=== PATIENT | female | born 1970 | race Caucasian/White ===

== ENCOUNTER 2016-12-02 10:35 | Emergency (ER) | payer OTHER ==
[~2016-12-02] VITALS: Ht 162.6 cm; Wt 90.7 kg
[~2016-12-02 10:35] MED LIST: ALTACE 5MG CAPSU5 MG PO; ASPIRIN 81MG TA81 MG PO; CLOPIDOGREL75 MG PO; FUROSEMIDE40 MG PO; LEXAPRO 20 MG T20 MG PO; NORCO 325 MG-51 TAB PO; PROTONIX 40MG T40 MG PO; RANEXA500 M1 PO; SIMVASTATIN40 MG PO; SPIRONOLACTONE25 MG NG
[2016-12-02] MEDS ORDERED: PROVENTIL0.09 MG/A1 IH (11:19)
[2016-12-02] MEDS ORDERED: MUCINEX1200 MG PO (11:19)
[2016-12-02] MEDS ORDERED: ZITHROMAX Z PA250 MG PO (11:19)
[2016-12-02] MEDS ORDERED: PROMETHAZINE D118 ML PO (11:19)
--- NOTE | 2016-12-02 11:20 | Urgent Treatment Center Report ---
History of Present Issue Date/Time Seen by Provider 12/02/16 1048 Visit Reason Pt arrived:Walked Presenting Problem:PT C/O COUGH WITH PAIN IN HER LUNGS. ADVISES SHE HAS BEEN FEELING BAD FOR ALMOST A MONTH BUT STARTED HAVING THE PAIN IN HER LUNGS FOR A WEEK Location if Accident: Onset of symptoms date/time:/ or onset unknown for:MEDICAL HX UNKNOWN Have you (or family members/close friends) recently traveled outside the [place]? N If Yes, where/when: Have you had exposure to infectious disease within the past month? TB? Other? Specify: c/o cough and now lung pain w/ cough and deep breath. Cough x 1 month, pain x 1 week. Slowly getting worse. Now not sleeping well because cough worse at night. Pain throughout lungs 4/10 at rest w/ normal breathing but 6-7/10 w/ cough or deep breaths. Bilateral lungs but worse on left. Hasn't checked for temp. Intermittent chills "but just go to bed with heated blanket". Malaise. SOA and wheezing at times, worse w/ exertion. + smoker. Tried unknown antibiotics 2-3 weeks ago. Possibly amoxicillin. Not sure. "They were my son's". Took them intermittently for 7-8 days. No improvement. Source patient Exam Limitations no limitations ALLERGIES Coded Allergies: No Known Allergies (07/05/16) Home Medications Active Scripts HYDROCODONE/ACETAMINOPHEN ([place] 5-325 Tablet) 1 TAB PO Q6HP PRN pain #7 TAB Prov: 07/05/16 Reported Medications ASPIRIN (Aspirin) 81 MG PO DAILY Spironolactone (Spironolactone) 25 MG NG BID Ramipril (Altace 5MG) 5 MG PO DAILY Furosemide (Furosemide 40MG) 40 MG PO DAILY Escitalopram Oxalate (Lexapro 20MG) 20 MG PO DAILY Simvastatin (Simvastatin 40MG Tab) 40 MG PO DAILY CLOPIDOGREL BISULFATE (Clopidogrel 75MG) 75 MG PO DAILY RANOLAZINE (RANEXA) 500 MG PO DAILY Pantoprazole Sodium (Protonix 40MG TAB) 40 MG PO BID History Medical History General CAD? No Angina: No [place]: No Hypertension? No Hyperlipidemia? No CHF? No DVT? No PE? No COPD? No Asthma? No Anemia? No GERD? No Gastric ulcers? No GI Bleed? No Hernia? No Thyroid Problems? No Hypothyroidism? No CVA? No Seizures? No Diabetes? No Renal Insuffiency? No UTI? No Stones? No BPH? No GB Disease: No Nephritic Syndrome? No Asplenia? No Hepatitis? No Sickle Cell Disease? No Arthritis? No Migraines? No Cataracts? No Glaucoma? No MRSA? No HIV? No TB? No Anxiety? No Depression? No Cancer? No More? No Immunization HX DT/Tetanus Unknown Surgical Hx Previous Surgery?Y HYSTERECTOMY GALLBLADDER RIGHT WRIST ECTOPIC X2 CARDIAC STENT Social History Smoking Hx Smoker: Current Every Day Smoker Tobacco: Yes Type Cigarettes Alcohol Alcohol: No Review of Systems All Other Systems Reviewed and Negative Constitutional see HPI Eyes denies drainage ENT denies: ear pain, ear discharge, nose discharge, nose congestion, throat pain. Respiratory see HPI Cardiovascular denies chest pain, denies palpitations Gastrointestinal denies no symptoms reported Psychiatric/Neurological denies no symptoms reported Physical Exam Vital Signs Vital Signs Date Time Temp Pulse Resp B/P Pulse O2 O2 Flow FiO2 Ox Delivery Rate 12/02 1044 98.4 84 16 119/78 98 General Appearance normal appearance, no apparent distress Eye Exam - bilateral eye normal exam Ear, Nose, Throat normal ENT inspection Neck non-tender, supple Respiratory Status Yes: trachea midline, chest symmetrical, non tender chest, pain on inspiration, non productive cough (worse w/ deep breath). No: respiratory distress, tender on palpation, use of accessory muscles, pain on expiration. Lung Sounds posterior: wheezing (right base, expiratory). bilateral: wheezing (right base, expiratory). Cardiovascular regular rate/rhythm, no murmur Neurologic alert Skin normal color, warm/dry Lymphatic no adenopathy (cervical) Medical Decision Making LABS/Meds/Orders Pt receiving controlled substance in ED? No Results/Orders Current Medication Orders Sig/Shavon Start time Last Medication Dose Route Stop Time Status Admin Methylprednisolone 125 MG ONCE ONE 12/02 1115 DC 12/02 Sodium Succinate IM 12/02 1116 1109 Methylprednisolone 0 .STK-MED ONE 12/02 1107 DC Sodium Succinate .ROUTE Orders Procedure Date/time Status CHEST(2 VIEWS-NOT PORTABLE) 12/02 1046 Active XRAY/CT/US XRAY/CT/US XRAY chest XR interpretation by reviewed by me Xray Results no infiltrates Comment pt declined offer to wait for final results. Departure Departure Time of Disposition 1111 Disposition DC Home or Self Care(routine) Clinical Impression Primary Impression: Acute bronchitis Qualifiers: Bronchitis organism: unspecified organism Qualified Code: J20.9 - Acute bronchitis, unspecified Secondary Impressions: Tobacco abuse Condition STABLE Referrals ANU VARMA (Family) Immediately for new or worsening symptoms or No noticeable improvement over next 3-4 days or improvement but then get worse again Patient Instructions DI for Acute Bronchitis, Tips to Help You Stop Smoking Additional Instructions Discussed antibiotics. Aware of risk for resistance. Should never have left overs unless a provider tells you to stop taking them, should never start taking antibiotics unless told to by your medical provider, should always take antibiotics as prescribed for full length of time. Discussed smoking cessation. Pt already knows she needs to quit. FU with PCP for final xray result. Aware nothing obviously concerning on prelim review Discussed steroids to help w/ inflammation process. Pt declines steroid pills d/ t adverse GI side effects. Reports she can tolerate injection but no pills. Aware injection today does not last full length of time pills would and to be sure to FU with Primary care if not improving or gets worse. Start antibiotic today and be sure to complete it as prescribed. Increase fluids. monitor temp Albuterol every 4 hours as needed for shortness of breath, wheezing. Pt declined offer to have Resp educate on use stating she has used one in the past and was familiar with it. mucinex with lots of water during the day and cough syrup only at night. Will cause drowsiness so no driving or operating machines after taking it. Discharge Counseling Counseled pt/family regarding diagnosis, test results, medications/RX, home care, follow up needs Prescriptions Current Visit Scripts Azithromycin (Zithromycin (Z-BISI) 250MG Tab) 250 MG PO DAILY #6 TAB TAKE TWO (2) TABLETS ON DAY 1, THEN ONE (1) TABLET DAY #2 THRU #5 Guaifenesin (Mucinex) 1,200 MG PO BID #20 TER ALBUTEROL (Proventil Hfa Inhaler) 1-2 PUFF IH Q4-6H PRN PRN shortness of breath, wheezing #1 CAN PROMETHAZINE/DEXTROMETHORPHAN (Promethazine-Dm Syrup) 5-10 ML PO QHS PRN cough #120 SYR at 1120
[2016-12-02 11:27] VITALS: BP 119/78
--- NOTE | 2016-12-02 14:04 | RADIOLOGY REPORT PS360 ---
CHEST(2 VIEWS-NOT PORTABLE) ORDERING PHYSICIAN : SUZANNA BILLS APRN PATIENT AGE: 46 years GENDER: Female INDICATION: Cough with chest pain at lungsCOUGH WITH PAIN IN LUNGS Tightness in chest pain posterior chest PROCEDURE: CHEST(2 VIEWS-NOT PORTABLE) COMPARISON: No chest film available but there is a previous CT abdomen 07/05/2016 which includes lung bases a FINDINGS: Lungs well expanded and clear with no active disease evident. No pneumothorax. No pleural effusion. Heart normal size. Normal pulmonary vascularity. Hilar and mediastinal structures appear satisfactory. Chest wall unremarkable. T-spine intact. mild thickening & variant contour of the right anterior fifth rib again noted & stable IMPRESSION No active disease in the chest...
== END 2016-12-02 11:27 | disposition home or self-care (01) ==
LOC: UTC 10:35
DX: J20.9 Acute bronchitis, unspecified (principal); Z72.0 Tobacco use

== ENCOUNTER 2017-06-15 11:59 | Emergency (ER) | payer OTHER ==
[~2017-06-15] VITALS: Ht 162.6 cm; Wt 97.5 kg
[~2017-06-15 11:59] MED LIST changes: +MUCINEX1200 MG PO; +PROMETHAZINE D118 ML PO; +PROVENTIL0.09 MG/A1 IH; +ZITHROMAX Z PA250 MG PO
[2017-06-15] MEDS ORDERED: ACETAMINOPHEN-H1 TA2 PO (12:08)
[2017-06-15] MEDS ORDERED: CYCLOBENZAPRINE10 M1 OR (12:08)
[2017-06-15] MEDS ORDERED: MEDROL 4MG. DOSE4 MG PO (12:25)
--- NOTE | 2017-06-15 12:26 | Emergency Room Report ---
History of Present Illness Time Seen by MD Johnson Presenting Problem in Triage Pt arrived:Walked Presenting Problem:PT INJURED HER BACK ON FRIDAY WHEN SHE BENT OVER AND WENT TO ER AT [facility]. 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 N Clinical Suspician of Infection? N Mental Status: 1 - Regular (Normal Baseline) Sepsis Risk:Low Sepsis Risk Have you (or family members/close friends) recently traveled outside the [place]? N If Yes, where/when: Have you had exposure to infectious disease within the past month? N TB? Other? Specify: 47 years old white female who has been experiencing low back pain radiating to the LEFT lower extremity for a week. Yesterday, she sneezed and she felt sharp pain radiating to the lateral last visit of the LEFT thigh. She denies any weakness or numbness loss of urine or bowel control. Source patient, RN notes reviewed, family Exam Limitations no limitations ALLERGIES Coded Allergies: No Known Allergies (07/05/16) Home Medications Active Scripts HYDROCODONE/ACETAMINOPHEN ([place] 5-325 Tablet) 1 TAB PO Q6HP PRN pain #7 TAB Prov: 07/05/16 Guaifenesin (Mucinex) 1,200 MG PO BID #20 TER Prov: 12/02/16 ALBUTEROL (Proventil Hfa Inhaler) 1-2 PUFF IH Q4-6H PRN PRN shortness of breath, wheezing #1 CAN Prov: 12/02/16 PROMETHAZINE/DEXTROMETHORPHAN (Promethazine-Dm Syrup) 5-10 ML PO QHS PRN cough #120 SYR Prov: 12/02/16 Reported Medications ASPIRIN (Aspirin) 81 MG PO DAILY Spironolactone (Spironolactone) 25 MG NG BID Ramipril (Altace 5MG) 5 MG PO DAILY Furosemide (Furosemide 40MG) 40 MG PO DAILY Escitalopram Oxalate (Lexapro 20MG) 20 MG PO DAILY Simvastatin (Simvastatin 40MG Tab) 40 MG PO DAILY CLOPIDOGREL BISULFATE (Clopidogrel 75MG) 75 MG PO DAILY RANOLAZINE (RANEXA) 500 MG PO DAILY Pantoprazole Sodium (Protonix 40MG TAB) 40 MG PO BID Cyclobenzaprine Hcl 10 MG OR DAILY #30 HYDROCODONE/ACETAMINOPHEN (Hydrocodon-Acetaminophen 5-325) 1 TAB PO PRN PRN . #10 History Medical History General CAD? No Angina: No [place]: No Hypertension? No Hyperlipidemia? No CHF? No DVT? No PE? No COPD? No Asthma? No Anemia? No GERD? No Gastric ulcers? No GI Bleed? No Hernia? No Thyroid Problems? No Hypothyroidism? No CVA? No Seizures? No Diabetes? No Renal Insuffiency? No End Stage Renal Disease? No UTI? No Stones? No BPH? No GB Disease: No Nephritic Syndrome? No Asplenia? No Hepatitis? No Sickle Cell Disease? No Arthritis? No Migraines? No Cataracts? No Glaucoma? No MRSA? No HIV? No TB? No Anxiety? No Depression? No Cancer? No More? 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 Respiratory no symptoms reported Cardiovascular no symptoms reported Gastrointestinal no symptoms reported Genitourinary no symptoms reported. Musculoskeletal see HPI, back pain Skin no symptoms reported Psychiatric/Neurological no symptoms reported Physical Exam Vital Signs Vital Signs Date Time Temp Pulse Resp B/P Pulse O2 O2 Flow FiO2 Ox Delivery Rate 06/15 1202 98.3 110 14 138/86 98 - WBC >12,000 or <4,000 or 10% bands? 2 or more SIRS Criteria Met? B/P:138/86 MAP:103 Creatinine >2.0? UA output<0.5ml/kg/hr for 2 hrs? Platelet count >100,000? Lactate >2.0mmol/1? INR >1.2 or PTT > than 60 sec? Evidence of Organ Dysfunction? Provider documented clinical suspician of infection? N Sepsis Criteria Count: 1 Sepsis Risk: Low Sepsis Risk General Appearance normal appearance, WD/WN Eye Exam - bilateral eye normal exam, bilateral eye PERRL, bilateral eye EOMI Ear, Nose, Throat hearing grossly normal, normal ENT inspection Neck normal inspection, non-tender, supple, full range of motion Respiratory Status Yes: trachea midline, chest symmetrical, non tender chest. No: respiratory distress. Lung Sounds bilateral: normal breath sounds, lungs clear. Cardiovascular normal exam, regular rate/rhythm, no peripheral edema, no gallop, no JVD, no murmur, no rub, normal peripheral pulses Peripheral Pulses Pulses normal Yes Gastrointestinal normal bowel sounds, normal exam, non tender, soft, no organomegaly Back tenderness of the lumbar paraspinal muscles Neurologic alert, check examiner II-XII nml as tested, normal exam, no motor/sensory deficits, oriented x 3, tenderness over the lumbar paraspinal muscles. Motor part is 5/5, no sensory deficit to pinprick including the saddle area Straight- leg raising is 90 degree on the RIGHT 60 degree on the LEFT. Reflexes Reflexes normal Yes Skin intact, normal color, warm/dry Medical Decision Making LABS/Meds/Orders Pt receiving controlled substance in ED? No Departure Departure Time of Disposition 1222 Disposition DC Home or Self Care(routine) Clinical Impression Primary Impression: Sciatica of left side Condition STABLE Referrals ANU VARMA (Family) Additional Instructions I instructed the patient for arrest" in the position. Patient was started on steroids. Follow-up with a primary care physician for an MRI Observe for leg weakness or loss of bowel control to return immediately The patient and mother verbalized understanding Discharge Counseling Counseled pt/family regarding diagnosis, medications/RX, home care, follow up needs Prescriptions Current Visit Scripts Methylprednisolone (Medrol Dose Bisi) 4 MG PO UD #1 BISI TAKE DIRECTED ON PACKAGING ED Critical Care Critical Care No If Critical Care minutes are documented, the time involved in the performance of seperately reportable procedures was not counted toward critical care time documented. I directly delivered medical care to this critically ill and/or injured patient. Timely evaluation and treatment was necessary to address the significant organ system(s) dysfunction present in this patient. at 1226
--- NOTE | 2017-06-15 12:26 | Emergency Room Report ---
History of Present Illness Time Seen by MD Johnson Presenting Problem in Triage Pt arrived:Walked Presenting Problem:PT INJURED HER BACK ON FRIDAY WHEN SHE BENT OVER AND WENT TO ER AT [facility]. 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 N Clinical Suspician of Infection? N Mental Status: 1 - Regular (Normal Baseline) Sepsis Risk:Low Sepsis Risk Have you (or family members/close friends) recently traveled outside the [place]? N If Yes, where/when: Have you had exposure to infectious disease within the past month? N TB? Other? Specify: 47 years old white female who has been experiencing low back pain radiating to the LEFT lower extremity for a week. Yesterday, she sneezed and she felt sharp pain radiating to the lateral last visit of the LEFT thigh. She denies any weakness or numbness loss of urine or bowel control. Source patient, RN notes reviewed, family Exam Limitations no limitations ALLERGIES Coded Allergies: No Known Allergies (07/05/16) Home Medications Active Scripts HYDROCODONE/ACETAMINOPHEN ([place] 5-325 Tablet) 1 TAB PO Q6HP PRN pain #7 TAB Prov: 07/05/16 Guaifenesin (Mucinex) 1,200 MG PO BID #20 TER Prov: 12/02/16 ALBUTEROL (Proventil Hfa Inhaler) 1-2 PUFF IH Q4-6H PRN PRN shortness of breath, wheezing #1 CAN Prov: 12/02/16 PROMETHAZINE/DEXTROMETHORPHAN (Promethazine-Dm Syrup) 5-10 ML PO QHS PRN cough #120 SYR Prov: 12/02/16 Reported Medications ASPIRIN (Aspirin) 81 MG PO DAILY Spironolactone (Spironolactone) 25 MG NG BID Ramipril (Altace 5MG) 5 MG PO DAILY Furosemide (Furosemide 40MG) 40 MG PO DAILY Escitalopram Oxalate (Lexapro 20MG) 20 MG PO DAILY Simvastatin (Simvastatin 40MG Tab) 40 MG PO DAILY CLOPIDOGREL BISULFATE (Clopidogrel 75MG) 75 MG PO DAILY RANOLAZINE (RANEXA) 500 MG PO DAILY Pantoprazole Sodium (Protonix 40MG TAB) 40 MG PO BID Cyclobenzaprine Hcl 10 MG OR DAILY #30 HYDROCODONE/ACETAMINOPHEN (Hydrocodon-Acetaminophen 5-325) 1 TAB PO PRN PRN . #10 History Medical History General CAD? No Angina: No [place]: No Hypertension? No Hyperlipidemia? No CHF? No DVT? No PE? No COPD? No Asthma? No Anemia? No GERD? No Gastric ulcers? No GI Bleed? No Hernia? No Thyroid Problems? No Hypothyroidism? No CVA? No Seizures? No Diabetes? No Renal Insuffiency? No End Stage Renal Disease? No UTI? No Stones? No BPH? No GB Disease: No Nephritic Syndrome? No Asplenia? No Hepatitis? No Sickle Cell Disease? No Arthritis? No Migraines? No Cataracts? No Glaucoma? No MRSA? No HIV? No TB? No Anxiety? No Depression? No Cancer? No More? 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 Respiratory no symptoms reported Cardiovascular no symptoms reported Gastrointestinal no symptoms reported Genitourinary no symptoms reported. Musculoskeletal see HPI, back pain Skin no symptoms reported Psychiatric/Neurological no symptoms reported Physical Exam Vital Signs Vital Signs Date Time Temp Pulse Resp B/P Pulse O2 O2 Flow FiO2 Ox Delivery Rate 06/15 1202 98.3 110 14 138/86 98 - WBC >12,000 or <4,000 or 10% bands? 2 or more SIRS Criteria Met? B/P:138/86 MAP:103 Creatinine >2.0? UA output<0.5ml/kg/hr for 2 hrs? Platelet count >100,000? Lactate >2.0mmol/1? INR >1.2 or PTT > than 60 sec? Evidence of Organ Dysfunction? Provider documented clinical suspician of infection? N Sepsis Criteria Count: 1 Sepsis Risk: Low Sepsis Risk General Appearance normal appearance, WD/WN Eye Exam - bilateral eye normal exam, bilateral eye PERRL, bilateral eye EOMI Ear, Nose, Throat hearing grossly normal, normal ENT inspection Neck normal inspection, non-tender, supple, full range of motion Respiratory Status Yes: trachea midline, chest symmetrical, non tender chest. No: respiratory distress. Lung Sounds bilateral: normal breath sounds, lungs clear. 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 Motor part is 5/5, no sensory deficit to pinprick including the saddle area Straight- leg raising is 90 degree on the RIGHT 60 degree on the LEFT. Reflexes Reflexes normal Yes Skin intact, normal color, warm/dry Medical Decision Making LABS/Meds/Orders Pt receiving controlled substance in ED? No Departure Departure Time of Disposition 1222 Disposition DC Home or Self Care(routine) Clinical Impression Primary Impression: Sciatica of left side Condition STABLE Referrals ANU VARMA (Family) Additional Instructions I instructed the patient for arrest" in the position. Patient was started on steroids. Follow-up with a primary care physician for an MRI Observe for leg weakness or loss of bowel control to return immediately The patient and mother verbalized understanding Discharge Counseling Counseled pt/family regarding diagnosis, medications/RX, home care, follow up needs Prescriptions Current Visit Scripts Methylprednisolone (Medrol Dose Bisi) 4 MG PO UD #1 BISI TAKE DIRECTED ON PACKAGING ED Critical Care Critical Care No If Critical Care minutes are documented, the time involved in the performance of seperately reportable procedures was not counted toward critical care time documented. I directly delivered medical care to this critically ill and/or injured patient. Timely evaluation and treatment was necessary to address the significant organ system(s) dysfunction present in this patient. at 1226
[2017-06-15] MEDS ORDERED: ROBAXIN-750750 MG PO (12:27)
[2017-06-15 13:01] VITALS: BP 138/86
== END 2017-06-15 13:02 | disposition home or self-care (01) ==
LOC: ER 11:59
DX: M54.32 Sciatica, left side (principal); F17.210 Nicotine dependence, cigarettes, uncomplicated; Z79.02 Long term (current) use of antithrombotics/antiplatelets; Z79.82 Long term (current) use of aspirin; Z79.899 Other long term (current) drug therapy; Z95.5 Presence of coronary angioplasty implant and graft